=== PATIENT | male | born 1980 | race Caucasian/White ===

== ENCOUNTER 2020-04-13 15:52 | Emergency (ER) | payer OTHER ==
[~2020-04-13] VITALS: Ht 172.7 cm; Wt 97.0 kg
[2020-04-13 16:39] VITALS: BP 109/72
--- NOTE | 2020-04-13 16:57 | RAD ---
Exam: Left ankle 3 views INDICATION: Ankle pain, left status post no bony axial TECHNIQUE: Frontal, lateral and oblique views of the left Comparisons: None FINDINGS: There is a transverse fracture through the middle malleolus which is mildly displaced. Overlying soft tissue swelling. No other fractures are identified. Joint spaces are well-maintained. IMPRESSION: Transverse fractures of the middle malleolus, mildly displaced. Electronically signed by: Nikos Colby MD (04/13/2020 4:55 PM) [facility]
[2020-04-13] MEDS ORDERED: HYDR-2155 PO (17:43)
--- NOTE | 2020-04-13 17:43 | PHYS DOC ---
Past History Past Medical History: No Pertinent History Past Surgical History: Other Alcohol Use: Rarely General Adult EDM: Chief Complaint: ANKLE PROBLEM HPI: HPI: Patient is a 39-year-old male who presents with left ankle pain. Patient states that he was snowboarding and fell. Patient applied his own splint. Denies taking medication prior to coming. Review of Systems: Review of Systems: Constitutional: Denies fever or chills Eyes: Denies change in visual acuity HENT: Denies nasal congestion or sore throat Respiratory: Denies cough or shortness of breath Cardiovascular: Denies chest pain or edema GI: Denies abdominal pain, nausea, vomiting, bloody stools or diarrhea : Denies dysuria Musculoskeletal: Denies back pain or left ankle pain Integument: Denies rash Neurologic: Denies headache, focal weakness or sensory changes Endocrine: Denies polyuria or polydipsia Lymphatic: Denies swollen glands Psychiatric: Denies depression or anxiety Allergies: Allergies: Allergies Coded Allergies Type Severity Reaction Last Updated Verified No Known Drug Allergies 04/13/20 No Physical Exam: PE: Constitutional: Well developed, well nourished, no acute distress, non-toxic appearance. [] HENT: Normocephalic, atraumatic, bilateral external ears normal, oropharynx moist, no oral exudates, nose normal. [] Eyes: PERRLA, EOMI, conjunctiva normal, no discharge. [] Neck: Normal range of motion, no tenderness, supple, no stridor. [] Cardiovascular:Heart rate regular rhythm, no murmur [] Lungs & Thorax: Bilateral breath sounds clear to auscultation [] Abdomen: Bowel sounds normal, soft, no tenderness, no masses, no pulsatile masses. [] Skin: Warm, dry, no erythema, no rash. [] Back: No tenderness, no CVA tenderness. [] Extremities: Left ankle tenderness, no cyanosis, no clubbing, ROM intact, swelling, pedal pulses intact Neurologic: Alert and oriented X 3, normal motor function, normal sensory function, no focal deficits noted. [] Psychologic: Affect normal, judgement normal, mood normal. [] Current Patient Data: Vital Signs: Vital Signs Date Time Temp Pulse Resp B/P (MAP) Pulse Ox O2 Delivery O2 Flow Rate FiO2 04/13/20 16:39 98.5 89 16 109/72 (84) 97 Room Air EKG: EKG: [] Radiology/Procedures: Radiology/Procedures: []Exam: Left ankle 3 views INDICATION: Ankle pain, left status post no bony axial TECHNIQUE: Frontal, lateral and oblique views of the left Comparisons: None FINDINGS: There is a transverse fracture through the middle malleolus which is mildly displaced. Overlying soft tissue swelling. No other fractures are identified. Joint spaces are well-maintained. IMPRESSION: Transverse fractures of the middle malleolus, mildly displaced. Electronically signed by: Nikos Colby MD (04/13/2020 4:55 PM) [facility] Heart Score: Risk Factors: Risk Factors: DM, Current or recent (<one month) smoker, HTN, HLP, family history of CAD, obesity. Risk Scores: Score 0 - 3: 2.5% MACE over next 6 weeks - Discharge Home Score 4 - 6: 20.3% MACE over next 6 weeks - Admit for Clinical Observation Score 7 - 10: 72.7% MACE over next 6 weeks - Early Invasive Strategies Course & Med Decision Making: Course & Med Decision Making Pertinent Labs and Imaging studies reviewed. (See chart for details) [] Patient is a 39-year-old male who presents with left ankle pain. Patient states that he was snowboarding and fell. Patient applied his own splint. Denies taking medication prior to coming. Patient denies pain at the knee. Pedal pulses intact. Cap refill less than 3 seconds. Patient still has range of motion of the knee. Left ankle x-ray shows Transverse fractures of the middle malleolus, mildly displaced. Posterior ankle splint applied, crutches given, hydrocodone, follow- up with Ortho. Given rice instructions Pasha Disclaimer: Pasha Disclaimer: This electronic medical record was generated, in whole or in part, using a voice recognition dictation system. Departure Departure: Impression: Primary Impression: Fracture of malleolus of left ankle Qualified Codes: S82.892A - Other fracture of left lower leg, initial encounter for closed fracture Disposition: 01 DC HOME SELF CARE/HOMELESS Condition: STABLE Referrals: NON,STAFF (PCP) Patient Instructions: Ankle Fracture, [id number], RICE - Routine Care for Injuries, [id number] Additional Instructions: You were seen in the emergency room today for Transverse fractures of the middle malleolus. We have applied a splint to her left ankle. I have given you prescription for hydrocodone. You can also take ibuprofen at home for pain. We are also providing crutches for you to use when ambulating. Rest, ice to ankle, elevate. Please follow-up with Ortho for further evaluation. Please return to emergency room with any concerns or worsening symptoms. EMERGENCY DEPARTMENT GENERAL DISCHARGE INSTRUCTIONS Thank you for coming to [facility] (ED) today and trusting us with you care. We trust that you had a positivie experience in our Emergency Department. If you wish to speak to the department management, you may call the director at [phone]. YOUR FOLLOW UP INSTRUCTIONS ARE FOLLOWS: 1. Do you have a private Doctor? If you do not have a private doctor, please ask for a resource list of physicians or clinics that may be able to assist you with follow up care. 2. The Emergency Physician has interpreted your x-rays. The X-Ray specialist will also review them. If there is a change in the findings, you will be notified in 48 hours when at all possible. 3. A lab test or culture has been done, your results will be reviewed and you will be notified if you need a change in treatment. ADDITIONAL INSTRUCTIONS AND INFORMATION: 1. Your care today has been supervised by a physician who is specially trained in emergency care. Many problems require more than one evaluation for a complete diagnosis and treatment. We recommend that you schedule your follow up appointment as recommended to ensure complete treatment of you illness or injury. If you are unable to obtain follow up care and continue to have a problem, or if your condition worsens, we recommend that you return to the ED. 2. We are not able to safely determine your condition over the phone nor are we able to give sound medical advice over the phone. For these safety reasons, if you call for medical advice we will ask you to come to the ED for further evaluation. 3. If you have any questions regarding these discharge instructions please call the ED at [phone]. SAFETY INFORMATION: In the interest of safety, wellness, and injury prevention; we encourage you to wear your sealbelt, if you smoke; quite smoking, and we encourage family to use a protective helmet for bicycling and other sporting events that present an increased risk for head injury. IF YOUR SYMPTOMS WORSEN OR NEW SYMPTOMS DEVELOP, OR YOU HAVE CONCERNS ABOUT YOUR CONDITION; OR IF YOUR CONDITION WORSENS WHILE YOU ARE WAITING FOR YOUR FOLLOW UP APPOINTMENT; EITHER CONTACT YOUR PRIMARY CARE DOCTOR, THE PHYSICIAN WHOSE NAME AND NUMBER YOU WERE GIVEN, OR RETURN TO THE ED IMMEDIATELY. Scripts Hydrocodone Bit/Acetaminophen (HYDROCODONE-APAP 5-325 ) 1 Each Tablet 1 TAB PO PRN Q6HRS PRN for PAIN for 3 Days, #12 TAB 0 Refills Prov: DREW SMITH APRN 04/13/20 DREW SMITH APRN Apr 13, 2020 17:43
== END 2020-04-13 18:00 ==
LOC: ER 15:52
DX: S82.52XA Displaced fracture of medial malleolus of left tibia, initial encounter for closed fracture (principal); Z98.890 Other specified postprocedural states; W18.39XA Other fall on same level, initial encounter; Y93.89 Activity, other specified; Y92.89 Other specified places as the place of occurrence of the external cause; Y99.8 Other external cause status
CPT/HCPCS: 29515; 73610; 99283